=== PATIENT | male | born 1940 | race Caucasian/White ===

== ENCOUNTER 2016-11-29 17:54 | Inpatient (IN) | payer MEDICARE, OTHER ==
[~2016-11-29] VITALS: Ht 180.3 cm; Wt 75.5 kg
[~2016-11-29 17:54] MED LIST: ALFU10TA PO; AMLO10TA4 PO; ASPI-515 PO; GLIP10TA20 PO; LEVO175T2 PO; LOSA1TAB18 PO; METF500T4 PO; METO25TA35 PO; TAMS-11 PO
[2016-11-29] MEDS ORDERED: LOSA100T6 PO (18:07)
[2016-11-29 18:54] LABS: BLOOD UREA NITROGEN 29 mg/dL (7-18)
[2016-11-29] MEDS ORDERED: SODIUM CHLORIDE 0.9% 1,000ML IVBOLUS ONE (19:00)
[2016-11-29] MEDS ORDERED: SODIUM CHLORIDE FLUSH 10ML SYR IVF ONE (19:00)
[2016-11-29] MEDS ORDERED: CIPR500T87 PO (19:25)
[2016-11-29] MEDS ORDERED: CEFTRIAXONE PMX 1GM/50ML 50 ML IVPB ONE (19:30)
[2016-11-29] MEDS ORDERED: CEFTRIAXONE PMX 1GM/50ML 50 ML ONE (19:57)
[2016-11-29] MEDS ORDERED: SODIUM CHLORIDE 0.9% 1,000 ML IV SCH (20:32)
[2016-11-29] MEDS: CEFTRIAXONE PMX 2GM/50ML 50 ML IV SCH (20:56)
[2016-11-29] MEDS ORDERED: DOCUSATE 100 MG CAPSULE PO PRN (21:00)
[2016-11-29] MEDS ORDERED: BISACODYL 10 MG SUPP PR PRN (21:00)
[2016-11-29] MEDS ORDERED: HEPARIN 5,000 UNITS/ML, 1ML SQ SCH (21:00)
[2016-11-29] MEDS ORDERED: POLYETHYLENE GLYCOL 17 GM PACKET PO PRN (21:00)
[2016-11-29] MEDS ORDERED: TRAZODONE 50MG TABLET PO PRN (21:00)
[2016-11-29] MEDS ORDERED: LABETALOL 5MG/ML, 20ML IV PRN (21:00)
[2016-11-29] MEDS ORDERED: ACETAMINOPHEN 325 MG TABLET PO PRN (21:00)
[2016-11-29 21:23] LABS: IS PT STATUS REG ER OR PRE ER? NO
[2016-11-29 21:34] VITALS: BP 157/89
[2016-11-29] MEDS ORDERED: FUROSEMIDE 40 MG/4 ML IV ONE ×2 (22:30→23:30)
[2016-11-29] MEDS: METOPROLOL TARTRATE 25 MG TABLET PO SCH (22:39)
[2016-11-29] MEDS: AMLODIPINE 5 MG TABLET PO SCH (22:39)
[2016-11-29 22:45] LABS: ABG COLLECTION SITE RIGHT RADIAL; COLLATERAL CIRCULATION TESTING NORMAL
[2016-11-29] MEDS: INSULIN ASPART 100 UNITS/ML, PEN SQ-INSULIN SCH (23:32)
[2016-11-30 00:04] LABS: IS PT STATUS REG ER OR PRE ER? NO
[2016-11-30 02:36] VITALS: BP 91/59
[2016-11-30] MEDS ORDERED: HEPARIN 5,000 UNITS/ML, 1ML IV PRN (03:00)
[2016-11-30] MEDS ORDERED: HEPARIN 5,000 UNITS/ML, 1ML IV ONE (03:00)
[2016-11-30] MEDS ORDERED: HEPARIN 25,000 UNITS/500ML PMX 500 ML IV PRN (03:00)
[2016-11-30 04:00] VITALS: BP 98/60
[2016-11-30] MEDS: ASPIRIN 325 MG TABLET PO SCH ×2 (04:39→05:46)
[2016-11-30] MEDS: ATORVASTATIN 80 MG TABLET PO SCH ×2 (04:39→21:45)
[2016-11-30] MEDS: LEVOTHYROXINE 175 MCG TABLET PO SCH (04:51)
[2016-11-30 06:23] LABS: BLOOD UREA NITROGEN 31 mg/dL (7-18)
[2016-11-30 06:31] LABS: IS PT STATUS REG ER OR PRE ER? NO
[2016-11-30 06:35] LABS: ASPARTATE AMINO TRANSFERASE 32 U/L (15-37)
[2016-11-30 06:48] VITALS: BP 106/64
[2016-11-30] MEDS: INSULIN ASPART 100 UNITS/ML, PEN SQ-INSULIN SCH ×4 (07:00→21:44)
[2016-11-30] MEDS ORDERED: LOSARTAN 50MG TABLET PO SCH (09:00)
[2016-11-30] MEDS: TAMSULOSIN 0.4 MG CAP.ER.24H PO SCH (09:37)
[2016-11-30] MEDS: METOPROLOL TARTRATE 25 MG TABLET PO SCH ×2 (09:37→21:45)
[2016-11-30] MEDS: ALBUTEROL SULFATE 2.5 MG/3 ML NPPB SCH ×3 (09:40→19:25)
[2016-11-30] MEDS ORDERED: FENTANYL PF 100 MCG/2ML ONE (13:39)
[2016-11-30] MEDS ORDERED: MIDAZOLAM 1 MG/ML, 5ML ONE (13:40)
[2016-11-30] MEDS ORDERED: TICAGRELOR 90 MG TABLET ONE (13:40)
[2016-11-30] MEDS ORDERED: VERAPAMIL 2.5 MG/ML, 2ML ONE (13:40)
[2016-11-30] MEDS ORDERED: LIDOCAINE 2%, 20ML ONE (13:40)
[2016-11-30] MEDS ORDERED: NITROGLYCERIN 5 MG/ML, 10ML ONE (13:40)
[2016-11-30] MEDS ORDERED: HEPARIN 1,000 UNITS/ML, 10ML ONE (13:40)
[2016-11-30] MEDS ORDERED: BIVALIRUDIN 250 MG ONE (13:40)
[2016-11-30 15:34] VITALS: BP 103/62
[2016-11-30 19:08] VITALS: BP 108/61
[2016-11-30] MEDS: CEFTRIAXONE PMX 2GM/50ML 50 ML IV SCH (21:45)
[2016-11-30] MEDS: AMLODIPINE 5 MG TABLET PO SCH (21:46)
[2016-11-30] MEDS: HEPARIN 5,000 UNITS/ML, 1ML SQ SCH (23:20)
[2016-12-01 01:13] VITALS: BP 110/67
[2016-12-01] MEDS: ASPIRIN 81 MG TABLET EC PO SCH (05:14)
[2016-12-01] MEDS: LEVOTHYROXINE 175 MCG TABLET PO SCH (05:14)
[2016-12-01 05:47] LABS: BLOOD UREA NITROGEN 46 mg/dL (7-18)
[2016-12-01 05:55] LABS: IS PT STATUS REG ER OR PRE ER? NO
[2016-12-01] MEDS: ALBUTEROL SULFATE 2.5 MG/3 ML NPPB SCH ×3 (07:00→18:54)
[2016-12-01] MEDS: INSULIN ASPART 100 UNITS/ML, PEN SQ-INSULIN SCH ×4 (07:30→21:08)
[2016-12-01 08:21] VITALS: BP 121/69
[2016-12-01] MEDS: TAMSULOSIN 0.4 MG CAP.ER.24H PO SCH (10:12)
[2016-12-01] MEDS: METOPROLOL TARTRATE 25 MG TABLET PO SCH (10:12)
[2016-12-01] MEDS: LOSARTAN 50MG TABLET PO SCH (10:12)
[2016-12-01] MEDS: HEPARIN 5,000 UNITS/ML, 1ML SQ SCH ×3 (10:13→21:37)
[2016-12-01] MEDS ORDERED: FLUCONAZOLE 200 MG/100 ML 100 ML IV SCH (10:30)
[2016-12-01] MEDS ORDERED: FUROSEMIDE 40 MG/4 ML IV ONE (11:00)
[2016-12-01 14:54] VITALS: BP 134/75
[2016-12-01] MEDS: CARVEDILOL 6.25 MG TABLET PO SCH (15:04)
[2016-12-01 19:42] VITALS: BP 118/69
[2016-12-01] MEDS: AMLODIPINE 5 MG TABLET PO SCH (21:06)
[2016-12-01] MEDS: CEFTRIAXONE PMX 2GM/50ML 50 ML IV SCH (21:07)
[2016-12-01] MEDS: ATORVASTATIN 80 MG TABLET PO SCH (21:07)
[2016-12-02 01:33] VITALS: BP 115/67
[2016-12-02] MEDS: LEVOTHYROXINE 175 MCG TABLET PO SCH (06:56)
[2016-12-02] MEDS: CARVEDILOL 6.25 MG TABLET PO SCH (06:56)
[2016-12-02] MEDS: ASPIRIN 81 MG TABLET EC PO SCH (06:56)
[2016-12-02] MEDS: ALBUTEROL SULFATE 2.5 MG/3 ML NPPB SCH (07:30)
[2016-12-02 08:16] VITALS: BP 103/65
[2016-12-02] MEDS: LOSARTAN 50MG TABLET PO SCH (09:35)
[2016-12-02] MEDS: HEPARIN 5,000 UNITS/ML, 1ML SQ SCH (09:35)
[2016-12-02] MEDS: TAMSULOSIN 0.4 MG CAP.ER.24H PO SCH (09:35)
[2016-12-02] MEDS: INSULIN ASPART 100 UNITS/ML, PEN SQ-INSULIN SCH (09:36)
[2016-12-31] MEDS ORDERED: ATOR40TA78 PO (14:04)
[2016-12-31] MEDS ORDERED: [UNRECOGNIZED DRUG - OTHER] PO (14:04)
== END 2016-12-02 12:20 | disposition hospice, home (50) | DRG 280 ==
LOC: ED 19:48 → EDIP 20:53 → 4EST 21:13 → 5SO 11-30 03:57
PROVIDERS: ADMIT Internal Medicine; ATTEND Family Medicine
PROC: 4A023N7 Measurement of Cardiac Sampling and Pressure, Left Heart, Percutaneous Approach (ICD-10-PCS; principal; 2016-11-30)
PROC: B2111ZZ Fluoroscopy of Multiple Coronary Arteries using Low Osmolar Contrast (ICD-10-PCS; 2016-11-30)
DX: I21.4 Non-ST elevation (NSTEMI) myocardial infarction (principal); J96.00 Acute respiratory failure, unspecified whether with hypoxia or hypercapnia; I13.0 Hypertensive heart and chronic kidney disease with heart failure and stage 1 through stage 4 chronic kidney disease, or unspecified chronic kidney disease; B37.49 Other urogenital candidiasis; W07.XXXA Fall from chair, initial encounter; I44.7 Left bundle-branch block, unspecified; N18.3 Chronic kidney disease, stage 3 (moderate); E11.22 Type 2 diabetes mellitus with diabetic chronic kidney disease; E78.5 Hyperlipidemia, unspecified; E03.9 Hypothyroidism, unspecified; W01.0XXA Fall on same level from slipping, tripping and stumbling without subsequent striking against object, initial encounter; H40.9 Unspecified glaucoma; Z66 Do not resuscitate; I25.10 Atherosclerotic heart disease of native coronary artery without angina pectoris; I25.5 Ischemic cardiomyopathy; I48.91 Unspecified atrial fibrillation; I50.9 Heart failure, unspecified; Z91.14 Patient's other noncompliance with medication regimen; Z80.0 Family history of malignant neoplasm of digestive organs; Z87.442 Personal history of urinary calculi; Z87.891 Personal history of nicotine dependence; I69.398 Other sequelae of cerebral infarction; Y93.89 Activity, other specified; Y92.89 Other specified places as the place of occurrence of the external cause; Z91.010 Allergy to peanuts; Z79.899 Other long term (current) drug therapy; R31.0 Gross hematuria
CPT/HCPCS: 36415; 36600; 70450; 71010; 74176; 78582; 80048; 80053; 81001; 82040; 82803; 82962; 83036; 83735; 84153; 84439; 84443; 84484; 85025; 85379; 85520; 87040; 87086; 87106; 93005; 93306; 93458; 94640; 96361; 96365; C1894; J0583; J0696; J1644; J1815; J1940; J2250; J3010; J3490; J7613; A9540; A9558; C9898; J1450; J7030; Q9967

== ENCOUNTER → 2016-12-31 | Outpatient (CLI) | payer MEDICARE, OTHER ==
[~2016-12-31] MED LIST changes: +ATOR40TA78 PO; +CIPR500T87 PO; +LOSA100T6 PO; +[UNRECOGNIZED DRUG - OTHER] PO
[2016-12-31 14:47] LABS: BLOOD UREA NITROGEN 25 mg/dL (7-18)
[2016-12-31 14:52] LABS: ASPARTATE AMINO TRANSFERASE 12 U/L (15-37)
== END | disposition home or self-care (01) ==
LOC: STAR 13:27
PROVIDERS: ATTEND Urology
DX: Z01.818 Encounter for other preprocedural examination (principal); N20.1 Calculus of ureter
CPT/HCPCS: 36415; 80053; 81001; 85025; 87086

== ENCOUNTER 2017-01-12 13:49 | Day surgery (SDC) | payer MEDICARE, OTHER ==
[~2017-01-12] VITALS: Ht 180.3 cm; Wt 70.5 kg
[2017-01-12] MEDS ORDERED: MIDAZOLAM 1 MG/ML, 2ML ONE (15:27)
[2017-01-12] MEDS ORDERED: FENTANYL PF 250 MCG/5ML ONE (15:27)
[2017-01-12] MEDS ORDERED: EPHEDRINE 50 MG/ML, 1ML ONE (16:10)
[2017-01-12] MEDS ORDERED: ONDANSETRON 2MG/ML, 2ML ONE (16:10)
[2017-01-12] MEDS ORDERED: DEXAMETHASONE 4 MG/ML, 1ML ONE (16:10)
[2017-01-12] MEDS ORDERED: CEFAZOLIN 1,000 MG ONE (16:10)
[2017-01-12] MEDS ORDERED: PROPOFOL 10 MG/ML, 20ML ONE (16:10)
[2017-01-12] MEDS ORDERED: ROCURONIUM 10 MG/ML ONE (16:10)
[2017-01-14] MEDS ORDERED: LACTATED RINGERS 1,000 ML IV SCH (13:31)
== END 2017-01-12 19:15 | disposition home or self-care (01) ==
LOC: OR 13:49
PROVIDERS: ATTEND Urology
DX: N13.2 Hydronephrosis with renal and ureteral calculous obstruction (principal); N40.1 Benign prostatic hyperplasia with lower urinary tract symptoms; N13.8 Other obstructive and reflux uropathy; E78.5 Hyperlipidemia, unspecified; I44.7 Left bundle-branch block, unspecified; Z86.73 Personal history of transient ischemic attack (TIA), and cerebral infarction without residual deficits; E03.9 Hypothyroidism, unspecified; E11.22 Type 2 diabetes mellitus with diabetic chronic kidney disease; I12.9 Hypertensive chronic kidney disease with stage 1 through stage 4 chronic kidney disease, or unspecified chronic kidney disease; N18.9 Chronic kidney disease, unspecified; Z87.440 Personal history of urinary (tract) infections; Z91.010 Allergy to peanuts
CPT/HCPCS: 52356; 74000; 76000; 82360; 82962; 88300; C1758; C2617; J0690; J1100; J2250; J2405; J2704; J3010

== ENCOUNTER 2017-02-06 07:50 | Inpatient (IN) | payer MEDICARE, OTHER ==
[2017-02-04 12:50] LABS: ASPARTATE AMINO TRANSFERASE 15 U/L (15-37); BLOOD UREA NITROGEN 26 mg/dL (7-18)
[~2017-02-06] VITALS: Ht 180.3 cm; Wt 73.2 kg
[~2017-02-06 07:50] MED LIST changes: +CARV6.2512 PO; +LIDOCAINE 2%, 20ML ONE
[2017-02-06] MEDS ORDERED: MIDAZOLAM 1 MG/ML, 5ML ONE (08:18)
[2017-02-06] MEDS ORDERED: VERAPAMIL 2.5 MG/ML, 2ML ONE ×2 (08:18→08:35)
[2017-02-06] MEDS ORDERED: FENTANYL PF 100 MCG/2ML ONE (08:18)
[2017-02-06] MEDS ORDERED: NITROGLYCERIN 5 MG/ML, 10ML ONE (08:18)
[2017-02-06] MEDS ORDERED: LIDOCAINE 2%, 20ML ONE (08:19)
[2017-02-06] MEDS ORDERED: BIVALIRUDIN 250 MG ONE (08:19)
[2017-02-06] MEDS ORDERED: TICAGRELOR 90 MG TABLET ONE (08:19)
[2017-02-06] MEDS ORDERED: HEPARIN 1,000 UNITS/ML, 10ML ONE (08:19)
[2017-02-06] MEDS ORDERED: SODIUM CHLORIDE 0.9% 1,000 ML IV ONE (08:20)
[2017-02-06] MEDS ORDERED: HEPARIN 25,000 UNITS in DEXTROSE 5% 500 ML IV PRN (12:00)
[2017-02-06 14:57] VITALS: BP 138/74
[2017-02-06] MEDS ORDERED: MORPHINE SULFATE 4 MG/ML, 1ML ONE (15:54)
[2017-02-06] MEDS: metFORMIN 500 MG TABLET PO SCH (16:52)
[2017-02-06] MEDS: SODIUM CHLORIDE 0.9% 1,000 ML IV SCH (16:55)
[2017-02-06] MEDS ORDERED: MORPHINE SULFATE 4 MG/ML, 1ML IVPush PRN (17:00)
[2017-02-06] MEDS: TICAGRELOR 90 MG TABLET PO SCH (20:36)
[2017-02-06] MEDS ORDERED: ATORVASTATIN 40 MG TABLET PO SCH (21:00)
[2017-02-06] MEDS ORDERED: AMLODIPINE 5 MG TABLET PO SCH (21:00)
[2017-02-07] MEDS: SODIUM CHLORIDE 0.9% 1,000 ML IV SCH ×2 (00:12→05:15)
[2017-02-07 04:55] LABS: BLOOD UREA NITROGEN 22 mg/dL (7-18)
[2017-02-07] MEDS ORDERED: LEVOTHYROXINE 175 MCG TABLET PO SCH (06:00)
[2017-02-07] MEDS: metFORMIN 500 MG TABLET PO SCH (08:00)
[2017-02-07] MEDS ORDERED: GLIPizide ER 5 MG TABLET PO SCH (08:00)
[2017-02-07] MEDS ORDERED: TICA90TA PO (08:14)
[2017-02-07] MEDS ORDERED: ASPI-621 PO (08:14)
[2017-02-07] MEDS: TICAGRELOR 90 MG TABLET PO SCH (08:42)
[2017-02-07] MEDS ORDERED: CARVEDILOL 6.25 MG TABLET PO SCH (09:00)
[2017-02-07] MEDS ORDERED: ASPIRIN 81 MG TABLET EC PO SCH (09:00)
[2017-02-07] MEDS ORDERED: LOSARTAN 50MG TABLET PO SCH (09:00)
[2017-02-07] MEDS ORDERED: TAMSULOSIN 0.4 MG CAP.ER.24H PO SCH (09:00)
== END 2017-02-07 14:36 | disposition home or self-care (01) | DRG 215 ==
LOC: CACL 07:50 → CSU 11:35
PROVIDERS: ADMIT Internal Medicine Cardiovascular Disease; ATTEND Internal Medicine Cardiovascular Disease
PROC: 027135Z Dilation of Coronary Artery, Two Arteries with Two Drug-eluting Intraluminal Devices, Percutaneous Approach (ICD-10-PCS; principal; 2017-02-06)
PROC: 02C03ZZ Extirpation of Matter from Coronary Artery, One Artery, Percutaneous Approach (ICD-10-PCS; 2017-02-06)
PROC: 4A023N7 Measurement of Cardiac Sampling and Pressure, Left Heart, Percutaneous Approach (ICD-10-PCS; 2017-02-06)
PROC: B2111ZZ Fluoroscopy of Multiple Coronary Arteries using Low Osmolar Contrast (ICD-10-PCS; 2017-02-06)
PROC: 02HA3RZ Insertion of Short-term External Heart Assist System into Heart, Percutaneous Approach (ICD-10-PCS; 2017-02-06)
PROC: 5A0221D Assistance with Cardiac Output using Impeller Pump, Continuous (ICD-10-PCS; 2017-02-06)
PROC: 02PA3RZ Removal of Short-term External Heart Assist System from Heart, Percutaneous Approach (ICD-10-PCS; 2017-02-06)
DX: I25.10 Atherosclerotic heart disease of native coronary artery without angina pectoris (principal); E78.5 Hyperlipidemia, unspecified; N18.9 Chronic kidney disease, unspecified; I25.5 Ischemic cardiomyopathy; E11.22 Type 2 diabetes mellitus with diabetic chronic kidney disease; I12.9 Hypertensive chronic kidney disease with stage 1 through stage 4 chronic kidney disease, or unspecified chronic kidney disease; E03.9 Hypothyroidism, unspecified; Z86.73 Personal history of transient ischemic attack (TIA), and cerebral infarction without residual deficits; Z87.442 Personal history of urinary calculi; Z87.891 Personal history of nicotine dependence; Z91.010 Allergy to peanuts
CPT/HCPCS: 33990; 36415; 80048; 80053; 82040; 85014; 85018; 85025; 85347; 85610; 85730; 87081; 92920; 93458; 99156; 99157; C1760; C1894; C9600; J0583; J1644; J2250; J3010; J3490; 92928; C1724; C1725; C1769; C1874; C1887; C9602; J7030; J7060; Q9967

== ENCOUNTER 2017-10-20 12:27 | Inpatient (IN) | payer MEDICARE, OTHER ==
[~2017-10-20] VITALS: Ht 180.3 cm; Wt 74.9 kg
[~2017-10-20 12:27] MED LIST changes: +ASPI-621 PO; +GLIP-164 PO; -GLIP10TA20 PO; -LIDOCAINE 2%, 20ML ONE; -LOSA1TAB18 PO; +LOSA1TAB25 PO; +TICA90TA PO
[2017-10-20 13:39] LABS: BASOPHILS # (AUTO) 0.02 x10^3/uL (0-0.1); BASOPHILS % (AUTO) 0 % (0-1); EOSINOPHILS # (AUTO) 0.45 x10^3/uL (0-0.4); EOSINOPHILS % (AUTO) 7 % (1-7); LYMPHOCYTES # (AUTO) 0.96 x10^3/uL (1-3.4); LYMPHOCYTES % (AUTO) 15 % (22-44); MD NO; MEAN CORPUSCULAR HGB CONC 32.9 g/dL (33.2-36.2); MEAN PLATELET VOLUME 7.9 fL (7.4-10.4); MONOCYTES # (AUTO) 0.59 x10^3/uL (0.2-0.8); MONOCYTES % (AUTO) 9 % (2-9); NEUTROPHILS # (AUTO) 4.47 x10^3/uL (1.8-6.8); NEUTROPHILS % (AUTO) 69 % (42-75); PLATELET COUNT 223 x10^3/uL (130-400); RED CELL DISTRIBUTION WIDTH 16.6 % (9.4-14.8)
[2017-10-20 13:50] LABS: INTERNATIONAL NORMALIZED RATIO 1.1 (0.93-1.1); PROTHROMBIN TIME 11.4 Seconds (9.6-11.5)
[2017-10-20] MEDS ORDERED: DEXTROSE 4 GM TAB.CHEW PO PRN (15:30)
[2017-10-20] MEDS ORDERED: GLUCAGON 1 MG IM PRN (15:30)
[2017-10-20] MEDS ORDERED: BISACODYL 10 MG SUPP PR PRN (15:30)
[2017-10-20] MEDS ORDERED: DOCUSATE 100 MG CAPSULE PO PRN (15:30)
[2017-10-20] MEDS ORDERED: PROMETHAZINE 25 MG/ML, 1ML IM PRN (15:30)
[2017-10-20] MEDS ORDERED: DEXTROSE 50%, 50ML SYRINGE IVPush PRN (15:30)
[2017-10-20] MEDS ORDERED: LABETALOL 5MG/ML, 20ML IVPush PRN (15:30)
[2017-10-20] MEDS ORDERED: ACETAMINOPHEN 325 MG TABLET PO PRN (15:30)
[2017-10-20] MEDS: INSULIN LISPRO 100 UNITS/ML, PEN SQ-INSULIN SCH ×2 (16:00→20:22)
[2017-10-20 16:49] VITALS: BP 129/70
[2017-10-20 16:56] LABS: BASOPHILS # (AUTO) 0.04 x10^3/uL (0-0.1); BASOPHILS % (AUTO) 1 % (0-1); EOSINOPHILS % (AUTO) 7 % (1-7); LYMPHOCYTES # (AUTO) 1.21 x10^3/uL (1-3.4); LYMPHOCYTES % (AUTO) 18 % (22-44); MD NO; MEAN CORPUSCULAR HEMOGLOBIN 26.7 pg (27.5-34.5); MEAN CORPUSCULAR HGB CONC 33.4 g/dL (33.2-36.2); MEAN CORPUSCULAR VOLUME 79.7 fL (81-97); MEAN PLATELET VOLUME 7.9 fL (7.4-10.4); MONOCYTES # (AUTO) 0.72 x10^3/uL (0.2-0.8); MONOCYTES % (AUTO) 11 % (2-9); NEUTROPHILS # (AUTO) 4.34 x10^3/uL (1.8-6.8); NEUTROPHILS % (AUTO) 64 % (42-75); PLATELET COUNT 238 x10^3/uL (130-400); RED BLOOD COUNT 3.45 x10^6/uL (4.38-5.82); RED CELL DISTRIBUTION WIDTH 16.6 % (9.4-14.8)
[2017-10-20 17:13] VITALS: BP 129/70
[2017-10-20] MEDS: HEPARIN 5,000 UNITS/ML, 1ML SQ SCH (17:32)
[2017-10-20 18:48] LABS: MICROSCOPIC INDICATED
[2017-10-20 18:49] LABS: CULTURE INDICATED? YES
[2017-10-20 20:00] VITALS: BP 127/69
[2017-10-20] MEDS: SODIUM CHLORIDE FLUSH 10ML SYR IVF SCH (20:22)
[2017-10-20] MEDS: ATORVASTATIN 40 MG TABLET PO SCH (20:22)
[2017-10-20] MEDS ORDERED: AMLODIPINE 5 MG TABLET PO SCH (21:00)
[2017-10-21] MEDS: HEPARIN 5,000 UNITS/ML, 1ML SQ SCH ×4 (00:35→16:30)
[2017-10-21 02:00] VITALS: BP 111/64
[2017-10-21 04:49] LABS: CHLORIDE 107 mmol/L (98-107)
[2017-10-21 04:58] LABS: ALANINE AMINOTRANSFERASE 18 U/L (12-78); ALBUMIN 2.7 g/dL (3.4-5.0); ALKALINE PHOSPHATASE 148 U/L (45-117); ANION GAP 8 mmol/L (5-15); BILIRUBIN,TOTAL 0.4 mg/dL (0.2-1.0); CALCIUM 9.5 mg/dL (8.5-10.1); CREATININE 1.46 mg/dL (0.7-1.3); TOTAL PROTEIN 6.1 g/dL (6.4-8.2)
[2017-10-21] MEDS: LEVOTHYROXINE 175 MCG TABLET PO SCH (05:59)
[2017-10-21] MEDS: INSULIN LISPRO 100 UNITS/ML, PEN SQ-INSULIN SCH ×4 (07:57→21:15)
[2017-10-21 08:40] VITALS: BP 132/72
[2017-10-21] MEDS: GLIPizide ER 5 MG TABLET PO SCH (08:55)
[2017-10-21] MEDS: CARVEDILOL 6.25 MG TABLET PO SCH (08:58)
[2017-10-21] MEDS: ASPIRIN 81 MG TABLET EC PO SCH (08:58)
[2017-10-21] MEDS: TAMSULOSIN 0.4 MG CAP.ER.24H PO SCH (08:58)
[2017-10-21] MEDS: SODIUM CHLORIDE FLUSH 10ML SYR IVF SCH ×2 (09:00→21:00)
[2017-10-21] MEDS ORDERED: LOSARTAN 50MG TABLET PO SCH (09:00)
[2017-10-21 14:20] VITALS: BP 104/59
[2017-10-21 20:28] VITALS: BP 117/64
[2017-10-21] MEDS: ATORVASTATIN 40 MG TABLET PO SCH (21:15)
[2017-10-22 00:10] VITALS: BP 149/65
[2017-10-22] MEDS: HEPARIN 5,000 UNITS/ML, 1ML SQ SCH ×3 (00:55→16:47)
[2017-10-22] MEDS: LEVOTHYROXINE 175 MCG TABLET PO SCH (06:12)
[2017-10-22 06:37] LABS: ALANINE AMINOTRANSFERASE 19 U/L (12-78); ALBUMIN 2.9 g/dL (3.4-5.0); ANION GAP 8 mmol/L (5-15); CALCIUM 9.3 mg/dL (8.5-10.1); CHLORIDE 108 mmol/L (98-107); CREATININE 1.68 mg/dL (0.7-1.3)
[2017-10-22 06:40] LABS: ALKALINE PHOSPHATASE 148 U/L (45-117); BILIRUBIN,TOTAL 0.4 mg/dL (0.2-1.0); TOTAL PROTEIN 6.2 g/dL (6.4-8.2)
[2017-10-22 07:43] VITALS: BP 145/74
[2017-10-22] MEDS: INSULIN LISPRO 100 UNITS/ML, PEN SQ-INSULIN SCH ×4 (08:25→20:58)
[2017-10-22 08:51] LABS: TROPONIN I < 0.015 ng/mL (0.000-0.045)
[2017-10-22] MEDS: TAMSULOSIN 0.4 MG CAP.ER.24H PO SCH (10:16)
[2017-10-22] MEDS: CARVEDILOL 6.25 MG TABLET PO SCH (10:16)
[2017-10-22] MEDS: ASPIRIN 81 MG TABLET EC PO SCH (10:16)
[2017-10-22] MEDS: GLIPizide ER 5 MG TABLET PO SCH (10:17)
[2017-10-22] MEDS: SODIUM CHLORIDE FLUSH 10ML SYR IVF SCH ×2 (10:21→20:58)
[2017-10-22 13:40] VITALS: BP 114/82
[2017-10-22 19:22] VITALS: BP 127/57
[2017-10-22] MEDS: ATORVASTATIN 40 MG TABLET PO SCH (20:58)
[2017-10-23 00:17] VITALS: BP 135/70
[2017-10-23] MEDS: HEPARIN 5,000 UNITS/ML, 1ML SQ SCH ×4 (01:20→20:17)
[2017-10-23] MEDS: LEVOTHYROXINE 175 MCG TABLET PO SCH (05:25)
[2017-10-23 06:02] LABS: ALBUMIN 2.8 g/dL (3.4-5.0); ANION GAP 7 mmol/L (5-15); CALCIUM 9.2 mg/dL (8.5-10.1); CHLORIDE 111 mmol/L (98-107)
[2017-10-23 06:07] LABS: ALANINE AMINOTRANSFERASE 18 U/L (12-78); ALKALINE PHOSPHATASE 144 U/L (45-117); BILIRUBIN,TOTAL 0.5 mg/dL (0.2-1.0); CREATININE 1.41 mg/dL (0.7-1.3); TOTAL PROTEIN 6.3 g/dL (6.4-8.2)
[2017-10-23 07:34] VITALS: BP 133/69
[2017-10-23] MEDS: TAMSULOSIN 0.4 MG CAP.ER.24H PO SCH (09:01)
[2017-10-23] MEDS: GLIPizide ER 5 MG TABLET PO SCH (09:01)
[2017-10-23] MEDS: CARVEDILOL 6.25 MG TABLET PO SCH (09:02)
[2017-10-23] MEDS: SODIUM CHLORIDE FLUSH 10ML SYR IVF SCH ×2 (09:02→20:55)
[2017-10-23] MEDS: INSULIN LISPRO 100 UNITS/ML, PEN SQ-INSULIN SCH ×4 (09:02→20:18)
[2017-10-23] MEDS: ASPIRIN 81 MG TABLET EC PO SCH (09:02)
[2017-10-23 16:19] VITALS: BP 136/80
[2017-10-23 18:46] VITALS: BP 127/68
[2017-10-23] MEDS: ATORVASTATIN 40 MG TABLET PO SCH (20:17)
[2017-10-24 01:31] VITALS: BP 150/72
[2017-10-24] MEDS: LEVOTHYROXINE 175 MCG TABLET PO SCH (06:25)
[2017-10-24] MEDS: HEPARIN 5,000 UNITS/ML, 1ML SQ SCH ×3 (06:26→22:59)
[2017-10-24] MEDS: INSULIN LISPRO 100 UNITS/ML, PEN SQ-INSULIN SCH ×4 (07:00→20:29)
[2017-10-24 07:19] VITALS: BP 105/55
[2017-10-24] MEDS: GLIPizide ER 5 MG TABLET PO SCH (08:00)
[2017-10-24] MEDS: LOSARTAN 50MG TABLET PO SCH (09:30)
[2017-10-24] MEDS: ATORVASTATIN 40 MG TABLET PO SCH ×2 (09:30→20:30)
[2017-10-24] MEDS: ASPIRIN 81 MG TABLET EC PO SCH (09:31)
[2017-10-24] MEDS: CARVEDILOL 6.25 MG TABLET PO SCH (09:31)
[2017-10-24] MEDS: SODIUM CHLORIDE FLUSH 10ML SYR IVF SCH ×2 (09:32→20:30)
[2017-10-24] MEDS: TAMSULOSIN 0.4 MG CAP.ER.24H PO SCH (09:33)
[2017-10-24 12:36] VITALS: BP 121/63
[2017-10-24 18:57] VITALS: BP 122/55
[2017-10-25 00:56] VITALS: BP 132/72
[2017-10-25] MEDS: LEVOTHYROXINE 175 MCG TABLET PO SCH (06:01)
[2017-10-25] MEDS: HEPARIN 5,000 UNITS/ML, 1ML SQ SCH ×3 (06:01→22:20)
[2017-10-25] MEDS: INSULIN LISPRO 100 UNITS/ML, PEN SQ-INSULIN SCH ×4 (07:00→22:21)
[2017-10-25 07:15] VITALS: BP 114/69
[2017-10-25] MEDS: GLIPizide ER 5 MG TABLET PO SCH (08:00)
[2017-10-25] MEDS: CARVEDILOL 6.25 MG TABLET PO SCH (08:55)
[2017-10-25] MEDS: LOSARTAN 50MG TABLET PO SCH (08:55)
[2017-10-25] MEDS: SODIUM CHLORIDE FLUSH 10ML SYR IVF SCH ×2 (08:55→22:20)
[2017-10-25] MEDS: TAMSULOSIN 0.4 MG CAP.ER.24H PO SCH (08:55)
[2017-10-25] MEDS: ATORVASTATIN 40 MG TABLET PO SCH ×2 (08:55→22:20)
[2017-10-25] MEDS: ASPIRIN 81 MG TABLET EC PO SCH (08:55)
[2017-10-25 12:50] VITALS: BP 126/62
[2017-10-25 19:03] VITALS: BP 116/60
[2017-10-26 00:35] VITALS: BP 119/65
[2017-10-26] MEDS: LEVOTHYROXINE 175 MCG TABLET PO SCH (06:33)
[2017-10-26] MEDS: HEPARIN 5,000 UNITS/ML, 1ML SQ SCH ×2 (06:33→14:19)
[2017-10-26 07:00] VITALS: BP 130/73
[2017-10-26] MEDS: INSULIN LISPRO 100 UNITS/ML, PEN SQ-INSULIN SCH ×3 (07:00→16:32)
[2017-10-26] MEDS: GLIPizide ER 5 MG TABLET PO SCH (08:00)
[2017-10-26] MEDS: TAMSULOSIN 0.4 MG CAP.ER.24H PO SCH (08:19)
[2017-10-26] MEDS: ATORVASTATIN 40 MG TABLET PO SCH (08:19)
[2017-10-26] MEDS: CARVEDILOL 6.25 MG TABLET PO SCH (08:20)
[2017-10-26] MEDS: SODIUM CHLORIDE FLUSH 10ML SYR IVF SCH (08:20)
[2017-10-26] MEDS: ASPIRIN 81 MG TABLET EC PO SCH (08:20)
[2017-10-26] MEDS: LOSARTAN 50MG TABLET PO SCH (08:20)
[2017-10-26] MEDS ORDERED: metFORMIN 500 MG TABLET PO SCH (09:00)
[2017-10-26] MEDS ORDERED: ASPI-621 PO (09:31)
[2017-10-26 12:50] VITALS: BP 118/66
== END 2017-10-26 18:05 | disposition short-term general hospital (02) | DRG 64 ==
LOC: ED 14:30 → EDIP 15:07 → 4EST 16:26
PROVIDERS: ADMIT Family Medicine; ATTEND Family Medicine
DX: I63.9 Cerebral infarction, unspecified (principal); N17.0 Acute kidney failure with tubular necrosis; I47.1 Supraventricular tachycardia; G81.94 Hemiplegia, unspecified affecting left nondominant side; I50.9 Heart failure, unspecified; G93.89 Other specified disorders of brain; I11.0 Hypertensive heart disease with heart failure; E11.9 Type 2 diabetes mellitus without complications; E03.9 Hypothyroidism, unspecified; I25.10 Atherosclerotic heart disease of native coronary artery without angina pectoris; N40.0 Benign prostatic hyperplasia without lower urinary tract symptoms; E78.5 Hyperlipidemia, unspecified; Z79.82 Long term (current) use of aspirin; Z95.5 Presence of coronary angioplasty implant and graft
CPT/HCPCS: 36415; 70450; 70551; 71045; 74230; 80047; 80053; 81001; 82962; 83735; 84443; 84484; 85025; 85610; 85730; 87040; 87086; 93005; 93306; 93880; 99285; J1644; 92522-GN; J1815

== ENCOUNTER 2017-12-14 07:23 | Inpatient (IN) | payer MEDICARE, OTHER ==
[~2017-12-14] VITALS: Ht 180.3 cm; Wt 77.6 kg
[~2017-12-14 07:23] MED LIST changes: +FURO20TA3 PO
[2017-12-14] MEDS ORDERED: ASPIRIN 81 MG TABLET CHEW ONE (07:45)
[2017-12-14 07:52] LABS: BASOPHILS # (AUTO) 0.04 x10^3/uL (0-0.1); BASOPHILS % (AUTO) 1 % (0-1); EOSINOPHILS # (AUTO) 0.14 x10^3/uL (0-0.4); EOSINOPHILS % (AUTO) 2 % (1-7); LYMPHOCYTES # (AUTO) 1.21 x10^3/uL (1-3.4); LYMPHOCYTES % (AUTO) 15 % (22-44); MD NO; MEAN CORPUSCULAR HEMOGLOBIN 26.2 pg (27.5-34.5); MEAN CORPUSCULAR HGB CONC 32.7 g/dL (33.2-36.2); MEAN CORPUSCULAR VOLUME 80.1 fL (81-97); MEAN PLATELET VOLUME 7.7 fL (7.4-10.4); MONOCYTES # (AUTO) 0.78 x10^3/uL (0.2-0.8); MONOCYTES % (AUTO) 10 % (2-9); NEUTROPHILS # (AUTO) 5.75 x10^3/uL (1.8-6.8); NEUTROPHILS % (AUTO) 73 % (42-75); PLATELET COUNT 206 x10^3/uL (130-400); RED CELL DISTRIBUTION WIDTH 16.3 % (9.4-14.8)
[2017-12-14] MEDS ORDERED: ASPIRIN 81 MG TABLET CHEW PO ONE (08:00)
[2017-12-14 08:04] LABS: ALBUMIN 2.9 g/dL (3.4-5.0); ANION GAP 8 mmol/L (5-15); CALCIUM 9.4 mg/dL (8.5-10.1); CHLORIDE 109 mmol/L (98-107); CREATININE 1.29 mg/dL (0.7-1.3)
[2017-12-14 08:08] LABS: TROPONIN I < 0.015 ng/mL (0.000-0.045)
[2017-12-14] MEDS ORDERED: LIDOCAINE-MPF 1%, 5ML ONE (09:49)
[2017-12-14] MEDS ORDERED: GLUCAGON 1 MG IM PRN (15:30)
[2017-12-14] MEDS ORDERED: ACETAMINOPHEN 325 MG TABLET PO PRN (15:30)
[2017-12-14] MEDS ORDERED: DEXTROSE 4 GM TAB.CHEW PO PRN (15:30)
[2017-12-14] MEDS ORDERED: DEXTROSE 50%, 50ML SYRINGE IVPush PRN (15:30)
[2017-12-14] MEDS ORDERED: ONDANSETRON ODT 4 MG PO PRN (15:30)
[2017-12-14] MEDS ORDERED: FUROSEMIDE 20 MG/2 ML IV ONE (15:30)
[2017-12-14] MEDS: INSULIN LISPRO 100 UNITS/ML, PEN SQ-INSULIN SCH ×2 (16:00→21:57)
[2017-12-14] MEDS ORDERED: HEPARIN 5,000 UNITS/ML, 1ML ONE (16:48)
[2017-12-14] MEDS ORDERED: FUROSEMIDE 20 MG/2 ML ONE (16:49)
[2017-12-14] MEDS: HEPARIN 5,000 UNITS/ML, 1ML SQ SCH ×2 (16:54→21:17)
[2017-12-14 18:44] VITALS: BP 134/82
[2017-12-14] MEDS: ATORVASTATIN 40 MG TABLET PO SCH (21:16)
[2017-12-14] MEDS: AMLODIPINE 5 MG TABLET PO SCH (21:16)
[2017-12-14] MEDS: SODIUM CHLORIDE FLUSH 10ML SYR IVF SCH (21:17)
[2017-12-15 02:20] VITALS: BP 127/58
[2017-12-15 05:14] LABS: BASOPHILS # (AUTO) 0.01 x10^3/uL (0-0.1); BASOPHILS % (AUTO) 0 % (0-1); EOSINOPHILS # (AUTO) 0.17 x10^3/uL (0-0.4); EOSINOPHILS % (AUTO) 3 % (1-7); LYMPHOCYTES # (AUTO) 1.04 x10^3/uL (1-3.4); LYMPHOCYTES % (AUTO) 15 % (22-44); MD NO; MEAN CORPUSCULAR HEMOGLOBIN 26.4 pg (27.5-34.5); MEAN CORPUSCULAR VOLUME 80.2 fL (81-97); MEAN PLATELET VOLUME 7.9 fL (7.4-10.4); MONOCYTES # (AUTO) 0.64 x10^3/uL (0.2-0.8); MONOCYTES % (AUTO) 10 % (2-9); NEUTROPHILS # (AUTO) 4.92 x10^3/uL (1.8-6.8); NEUTROPHILS % (AUTO) 73 % (42-75); PLATELET COUNT 191 x10^3/uL (130-400); RED BLOOD COUNT 3.44 x10^6/uL (4.38-5.82); RED CELL DISTRIBUTION WIDTH 16.4 % (9.4-14.8)
[2017-12-15 05:21] LABS: CHLORIDE 110 mmol/L (98-107)
[2017-12-15 05:27] LABS: HEMOGLOBIN A1C 6.5 % (4.2-6.3)
[2017-12-15 05:29] LABS: ALANINE AMINOTRANSFERASE 17 U/L (12-78); ALBUMIN 2.6 g/dL (3.4-5.0); ALKALINE PHOSPHATASE 117 U/L (45-117); ANION GAP 7 mmol/L (5-15); BILIRUBIN,TOTAL 0.7 mg/dL (0.2-1.0); CALCIUM 9.5 mg/dL (8.5-10.1); CREATININE 1.25 mg/dL (0.7-1.3); TOTAL PROTEIN 5.6 g/dL (6.4-8.2)
[2017-12-15] MEDS: LEVOTHYROXINE 175 MCG TABLET PO SCH (05:52)
[2017-12-15 07:48] VITALS: BP 149/76
[2017-12-15] MEDS: INSULIN LISPRO 100 UNITS/ML, PEN SQ-INSULIN SCH ×4 (08:14→20:08)
[2017-12-15] MEDS: GLIPizide ER 5 MG TABLET PO SCH (08:24)
[2017-12-15] MEDS: HEPARIN 5,000 UNITS/ML, 1ML SQ SCH ×2 (08:24→16:08)
[2017-12-15] MEDS: TAMSULOSIN 0.4 MG CAP.ER.24H PO SCH (08:24)
[2017-12-15] MEDS: ASPIRIN 81 MG TABLET EC PO SCH (08:24)
[2017-12-15] MEDS: SENNA/DOCUSATE TABLET PO SCH (08:24)
[2017-12-15] MEDS: CARVEDILOL 6.25 MG TABLET PO SCH (08:25)
[2017-12-15] MEDS: LOSARTAN 50MG TABLET PO SCH (08:25)
[2017-12-15] MEDS: SODIUM CHLORIDE FLUSH 10ML SYR IVF SCH ×2 (08:42→21:00)
[2017-12-15] MEDS ORDERED: FUROSEMIDE 20 MG/2 ML IV SCH (09:00)
[2017-12-15 15:36] VITALS: BP 112/62
[2017-12-15] MEDS: FUROSEMIDE 20 MG/2 ML IV SCH (16:08)
[2017-12-15 18:44] VITALS: BP 116/57
[2017-12-15] MEDS: AMLODIPINE 5 MG TABLET PO SCH (20:08)
[2017-12-15] MEDS: ATORVASTATIN 40 MG TABLET PO SCH (20:08)
[2017-12-16 01:15] VITALS: BP 149/74
[2017-12-16] MEDS: HEPARIN 5,000 UNITS/ML, 1ML SQ SCH ×3 (02:04→16:46)
[2017-12-16] MEDS: LEVOTHYROXINE 175 MCG TABLET PO SCH (05:50)
[2017-12-16 06:40] VITALS: BP 118/78
[2017-12-16 06:43] LABS: % IRON SATURATION 11 % (20-55); ALANINE AMINOTRANSFERASE 18 U/L (12-78); ALBUMIN 2.8 g/dL (3.4-5.0); ANION GAP 7 mmol/L (5-15); CALCIUM 9.9 mg/dL (8.5-10.1); CHLORIDE 107 mmol/L (98-107); CREATININE 1.37 mg/dL (0.7-1.3); IRON LEVEL 33 mcg/dL (65-175); TOTAL IRON BINDING CAPACITY 312 mcg/dL (250-450)
[2017-12-16 06:46] LABS: ALKALINE PHOSPHATASE 125 U/L (45-117); BILIRUBIN,TOTAL 0.5 mg/dL (0.2-1.0); TOTAL PROTEIN 5.9 g/dL (6.4-8.2)
[2017-12-16] MEDS: INSULIN LISPRO 100 UNITS/ML, PEN SQ-INSULIN SCH ×4 (07:00→20:09)
[2017-12-16] MEDS: SENNA/DOCUSATE TABLET PO SCH (09:00)
[2017-12-16] MEDS: FUROSEMIDE 20 MG/2 ML IV SCH (09:32)
[2017-12-16] MEDS: SODIUM CHLORIDE FLUSH 10ML SYR IVF SCH ×2 (09:33→20:09)
[2017-12-16] MEDS: GLIPizide ER 5 MG TABLET PO SCH (09:33)
[2017-12-16] MEDS: TAMSULOSIN 0.4 MG CAP.ER.24H PO SCH (09:33)
[2017-12-16] MEDS: ASPIRIN 81 MG TABLET EC PO SCH (09:34)
[2017-12-16] MEDS: LOSARTAN 50MG TABLET PO SCH (09:35)
[2017-12-16] MEDS: CARVEDILOL 6.25 MG TABLET PO SCH (09:35)
[2017-12-16] MEDS ORDERED: FERR325T5 PO (10:55)
[2017-12-16 13:20] VITALS: BP 104/70
[2017-12-16] MEDS: FUROSEMIDE 20 MG TABLET PO SCH (16:46)
[2017-12-16 18:34] VITALS: BP 118/57
[2017-12-16] MEDS: ATORVASTATIN 40 MG TABLET PO SCH (20:08)
[2017-12-16] MEDS: AMLODIPINE 5 MG TABLET PO SCH (20:08)
[2017-12-17] MEDS: HEPARIN 5,000 UNITS/ML, 1ML SQ SCH ×3 (00:22→17:55)
[2017-12-17 00:46] VITALS: BP 119/59
[2017-12-17] MEDS: LEVOTHYROXINE 175 MCG TABLET PO SCH (05:24)
[2017-12-17 06:32] LABS: CHLORIDE 108 mmol/L (98-107)
[2017-12-17 06:40] LABS: ANION GAP 9 mmol/L (5-15); CALCIUM 9.7 mg/dL (8.5-10.1); CREATININE 1.34 mg/dL (0.7-1.3)
[2017-12-17] MEDS: INSULIN LISPRO 100 UNITS/ML, PEN SQ-INSULIN SCH ×4 (07:21→21:07)
[2017-12-17 07:46] VITALS: BP 129/68
[2017-12-17] MEDS: LOSARTAN 50MG TABLET PO SCH (07:47)
[2017-12-17] MEDS: FERROUS SULFATE 325 MG TABLET PO SCH ×2 (07:47→18:13)
[2017-12-17] MEDS: TAMSULOSIN 0.4 MG CAP.ER.24H PO SCH (07:48)
[2017-12-17] MEDS: SENNA/DOCUSATE TABLET PO SCH (07:48)
[2017-12-17] MEDS: ASPIRIN 81 MG TABLET EC PO SCH (07:48)
[2017-12-17] MEDS: GLIPizide ER 5 MG TABLET PO SCH (07:49)
[2017-12-17] MEDS: FUROSEMIDE 20 MG TABLET PO SCH ×2 (07:49→18:13)
[2017-12-17] MEDS: CARVEDILOL 6.25 MG TABLET PO SCH (07:49)
[2017-12-17] MEDS: SODIUM CHLORIDE FLUSH 10ML SYR IVF SCH ×2 (07:50→21:11)
[2017-12-17 13:30] VITALS: BP 123/62
[2017-12-17 18:49] VITALS: BP 124/63
[2017-12-17] MEDS: AMLODIPINE 5 MG TABLET PO SCH (21:02)
[2017-12-17] MEDS: ATORVASTATIN 40 MG TABLET PO SCH (21:02)
[2017-12-18 00:49] VITALS: BP 126/66
[2017-12-18] MEDS: HEPARIN 5,000 UNITS/ML, 1ML SQ SCH ×2 (01:15→08:05)
[2017-12-18 05:17] VITALS: BP 108/59
[2017-12-18] MEDS: LEVOTHYROXINE 175 MCG TABLET PO SCH (05:47)
[2017-12-18 06:19] LABS: ANION GAP 9 mmol/L (5-15); CALCIUM 10.1 mg/dL (8.5-10.1); CHLORIDE 109 mmol/L (98-107)
[2017-12-18 06:20] LABS: CREATININE 1.26 mg/dL (0.7-1.3)
[2017-12-18] MEDS: INSULIN LISPRO 100 UNITS/ML, PEN SQ-INSULIN SCH ×2 (07:00→13:04)
[2017-12-18] MEDS: GLIPizide ER 5 MG TABLET PO SCH (07:30)
[2017-12-18 07:50] VITALS: BP 116/64
[2017-12-18] MEDS ORDERED: metFORMIN 500 MG TABLET PO SCH (08:00)
[2017-12-18] MEDS: SODIUM CHLORIDE FLUSH 10ML SYR IVF SCH (08:06)
[2017-12-18] MEDS: CARVEDILOL 6.25 MG TABLET PO SCH (08:07)
[2017-12-18] MEDS: SENNA/DOCUSATE TABLET PO SCH (08:08)
[2017-12-18] MEDS: FERROUS SULFATE 325 MG TABLET PO SCH (08:08)
[2017-12-18] MEDS: TAMSULOSIN 0.4 MG CAP.ER.24H PO SCH (08:08)
[2017-12-18] MEDS: LOSARTAN 50MG TABLET PO SCH (08:08)
[2017-12-18] MEDS: FUROSEMIDE 20 MG TABLET PO SCH (08:09)
[2017-12-18] MEDS: ASPIRIN 81 MG TABLET EC PO SCH (08:09)
[2017-12-18 08:13] VITALS: BP 109/62
== END 2017-12-18 13:52 | DRG 291 ==
LOC: ED 09:29 → EDIP 14:13 → 5SO 18:40 → 3NE 12-18 05:15
PROVIDERS: ADMIT Hospitalist; ATTEND Hospitalist
PROC: 0W9B3ZZ Drainage of Left Pleural Cavity, Percutaneous Approach (ICD-10-PCS; principal; 2017-12-14)
DX: I11.0 Hypertensive heart disease with heart failure (principal); J96.21 Acute and chronic respiratory failure with hypoxia; E11.9 Type 2 diabetes mellitus without complications; I25.10 Atherosclerotic heart disease of native coronary artery without angina pectoris; E03.9 Hypothyroidism, unspecified; D50.9 Iron deficiency anemia, unspecified; I44.7 Left bundle-branch block, unspecified; I50.33 Acute on chronic diastolic (congestive) heart failure; Z95.5 Presence of coronary angioplasty implant and graft; Z91.19 Patient's noncompliance with other medical treatment and regimen; Z86.73 Personal history of transient ischemic attack (TIA), and cerebral infarction without residual deficits; R32 Unspecified urinary incontinence; Z66 Do not resuscitate; Z79.82 Long term (current) use of aspirin; Z79.84 Long term (current) use of oral hypoglycemic drugs; Z91.010 Allergy to peanuts
CPT/HCPCS: 32555; 36415; 71045; 80048; 80053; 82040; 82728; 82945; 82962; 83036; 83540; 83550; 83615; 83735; 83880; 84157; 84443; 84466; 84484; 85025; 87070; 87075; 87205; 88112; 88305; 88341; 88342; 89051; 93005; 99285; J1644; G0461; J1815; J1940

== ENCOUNTER 2018-01-20 19:14 | Inpatient (IN) | payer MEDICARE, OTHER ==
[~2018-01-20] VITALS: Ht 175.3 cm; Wt 83.3 kg
[~2018-01-20 19:14] MED LIST changes: +FERR325T5 PO; -METF500T4 PO; +METF500T5 PO
[2018-01-20] MEDS ORDERED: FUROSEMIDE 100 MG/10 ML IV ONE (19:30)
[2018-01-20 19:45] LABS: BASOPHILS # (AUTO) 0.01 x10^3/uL (0-0.1); BASOPHILS % (AUTO) 0 % (0-1); EOSINOPHILS % (AUTO) 4 % (1-7); LYMPHOCYTES # (AUTO) 1.11 x10^3/uL (1-3.4); LYMPHOCYTES % (AUTO) 21 % (22-44); MD NO; MEAN CORPUSCULAR HEMOGLOBIN 27.1 pg (27.5-34.5); MEAN CORPUSCULAR HGB CONC 32.6 g/dL (33.2-36.2); MEAN CORPUSCULAR VOLUME 83.2 fL (81-97); MEAN PLATELET VOLUME 7.9 fL (7.4-10.4); MONOCYTES # (AUTO) 0.71 x10^3/uL (0.2-0.8); MONOCYTES % (AUTO) 13 % (2-9); NEUTROPHILS # (AUTO) 3.39 x10^3/uL (1.8-6.8); NEUTROPHILS % (AUTO) 63 % (42-75); PLATELET COUNT 209 x10^3/uL (130-400); RED BLOOD COUNT 3.34 x10^6/uL (4.38-5.82); RED CELL DISTRIBUTION WIDTH 17.3 % (9.4-14.8)
[2018-01-20 19:55] LABS: ALBUMIN 2.6 g/dL (3.4-5.0); ANION GAP 6 mmol/L (5-15); CALCIUM 11.4 mg/dL (8.5-10.1); CHLORIDE 103 mmol/L (98-107); CREATININE 1.68 mg/dL (0.7-1.3)
[2018-01-20] MEDS ORDERED: FURO20TA3 PO (19:55)
[2018-01-20] MEDS ORDERED: ASPI-515 PO (19:55)
[2018-01-20] MEDS ORDERED: BISA10SU2 PR (19:55)
[2018-01-20] MEDS ORDERED: DOXY100C2 PO (19:55)
[2018-01-20] MEDS ORDERED: INSU100C5 SQ-INSULIN (19:55)
[2018-01-20] MEDS ORDERED: AMLO10TA2 PO (19:55)
[2018-01-20] MEDS ORDERED: LEVO175T5 PO (19:56)
[2018-01-20] MEDS ORDERED: MAGN311T PO (19:56)
[2018-01-20] MEDS ORDERED: SENN-87 PO (19:56)
[2018-01-20] MEDS ORDERED: SPIR25TA3 PO (19:56)
[2018-01-20] MEDS ORDERED: INSU100V8 SQ (19:56)
[2018-01-20] MEDS ORDERED: SODIUM CHLORIDE FLUSH 10ML SYR IVF PRN (20:00)
[2018-01-20] MEDS ORDERED: DEXTROSE 50%, 50ML SYRINGE ONE (20:23)
[2018-01-20 20:27] VITALS: BP 118/71
[2018-01-20] MEDS ORDERED: D5%-0.45NACL+KCL 20MEQ 1,000 ML IV SCH (21:00)
[2018-01-20] MEDS ORDERED: hydrALAzine 20 MG/ML, 1ML IVPush PRN (22:00)
[2018-01-20] MEDS ORDERED: DEXTROSE 50%, 50ML SYRINGE IVPush PRN (22:00)
[2018-01-20] MEDS ORDERED: BISACODYL 10 MG SUPP PR PRN (22:00)
[2018-01-20] MEDS ORDERED: DEXTROSE 4 GM TAB.CHEW PO PRN (22:00)
[2018-01-20] MEDS ORDERED: GLUCAGON 1 MG IM PRN (22:00)
[2018-01-20] MEDS ORDERED: ONDANSETRON ODT 4 MG PO PRN (22:00)
[2018-01-20] MEDS ORDERED: ONDANSETRON 2MG/ML, 2ML IVPush PRN (22:00)
[2018-01-20] MEDS ORDERED: ENALAPRILAT 1.25 MG/ML, 2ML IVPush PRN (22:00)
[2018-01-20] MEDS ORDERED: POLYETHYLENE GLYCOL 17 GM PACKET PO PRN (22:00)
[2018-01-20] MEDS ORDERED: ACETAMINOPHEN 325 MG TABLET PO PRN (22:00)
[2018-01-20] MEDS ORDERED: DOCUSATE 100 MG CAPSULE PO PRN (22:00)
[2018-01-20 22:52] LABS: ALBUMIN 2.6 g/dL (3.4-5.0)
[2018-01-20 22:55] LABS: TROPONIN I < 0.015 ng/mL (0.000-0.045)
[2018-01-20] MEDS ORDERED: CEFEPIME 2 GM in DEXTROSE 5% 100 ML IV SCH (23:00)
[2018-01-21] MEDS: HEPARIN 5,000 UNITS/ML, 1ML SQ SCH ×3 (00:07→17:04)
[2018-01-21 00:15] VITALS: BP 116/62
[2018-01-21 04:29] LABS: MICROSCOPIC AUTO
[2018-01-21 04:30] LABS: CULTURE INDICATED? NO
[2018-01-21 05:59] LABS: BASOPHILS # (AUTO) 0.01 x10^3/uL (0-0.1); BASOPHILS % (AUTO) 0 % (0-1); EOSINOPHILS # (AUTO) 0.18 x10^3/uL (0-0.4); EOSINOPHILS % (AUTO) 4 % (1-7); LYMPHOCYTES # (AUTO) 1.16 x10^3/uL (1-3.4); LYMPHOCYTES % (AUTO) 22 % (22-44); MD NO; MEAN CORPUSCULAR HEMOGLOBIN 26.9 pg (27.5-34.5); MEAN CORPUSCULAR HGB CONC 32.4 g/dL (33.2-36.2); MEAN CORPUSCULAR VOLUME 83.2 fL (81-97); MEAN PLATELET VOLUME 8.3 fL (7.4-10.4); MONOCYTES # (AUTO) 0.66 x10^3/uL (0.2-0.8); MONOCYTES % (AUTO) 13 % (2-9); NEUTROPHILS # (AUTO) 3.21 x10^3/uL (1.8-6.8); NEUTROPHILS % (AUTO) 61 % (42-75); PLATELET COUNT 181 x10^3/uL (130-400); RED BLOOD COUNT 3.27 x10^6/uL (4.38-5.82); RED CELL DISTRIBUTION WIDTH 17.5 % (9.4-14.8)
[2018-01-21 06:07] LABS: ANION GAP 6 mmol/L (5-15); CALCIUM 10.7 mg/dL (8.5-10.1); CHLORIDE 104 mmol/L (98-107)
[2018-01-21 06:09] LABS: CREATININE 1.56 mg/dL (0.7-1.3)
[2018-01-21 06:45] VITALS: BP 105/68
[2018-01-21] MEDS: INSULIN LISPRO 100 UNITS/ML, PEN SQ-INSULIN SCH ×4 (07:00→20:26)
[2018-01-21] MEDS: FERROUS SULFATE 325 MG TABLET PO SCH ×2 (08:00→17:00)
[2018-01-21] MEDS: LEVOTHYROXINE 175 MCG TABLET PO SCH (08:00)
[2018-01-21] MEDS: SODIUM CHLORIDE FLUSH 10ML SYR IVF SCH ×2 (08:50→23:00)
[2018-01-21] MEDS: FUROSEMIDE 20 MG/2 ML IV SCH ×2 (08:50→22:59)
[2018-01-21] MEDS: SPIRONOLACTONE 25 MG TABLET PO SCH (08:54)
[2018-01-21] MEDS: TAMSULOSIN 0.4 MG CAP.ER.24H PO SCH (08:55)
[2018-01-21] MEDS: ASPIRIN 81 MG TABLET EC PO SCH (08:55)
[2018-01-21] MEDS: CARVEDILOL 6.25 MG TABLET PO SCH (08:55)
[2018-01-21] MEDS: LOSARTAN 50MG TABLET PO SCH (08:55)
[2018-01-21] MEDS: AMLODIPINE 5 MG TABLET PO SCH (08:55)
[2018-01-21] MEDS ORDERED: BISACODYL 10 MG SUPP PR SCH (09:00)
[2018-01-21] MEDS ORDERED: FUROSEMIDE 20 MG/2 ML IV SCH (09:00)
[2018-01-21] MEDS ORDERED: CEFEPIME 2 GM in SODIUM CHLORIDE 0.9% 100 ML IV SCH (09:00)
[2018-01-21] MEDS ORDERED: MAGNESIUM SULFATE PMX 2GM/50ML 50 ML IV ONE (12:30)
[2018-01-21] MEDS ORDERED: FUROSEMIDE 40 MG/4 ML ONE (14:39)
[2018-01-21] MEDS ORDERED: FUROSEMIDE 40 MG/4 ML IV STA (14:42)
[2018-01-21 15:04] VITALS: BP 110/59
[2018-01-21 18:55] VITALS: BP 116/73
[2018-01-21] MEDS: ATORVASTATIN 40 MG TABLET PO SCH (21:00)
[2018-01-21] MEDS: CEFEPIME 2 GM in SODIUM CHLORIDE 0.9% 100 ML IV SCH (23:00)
[2018-01-22] VITALS (7 sets, daily range): BP systolic 60–126; BP diastolic 49–69
[2018-01-22] MEDS: LEVOTHYROXINE 175 MCG TABLET PO SCH (02:08)
[2018-01-22] MEDS: HEPARIN 5,000 UNITS/ML, 1ML SQ SCH ×4 (06:03→20:12)
[2018-01-22 06:29] LABS: BASOPHILS # (AUTO) 0.02 x10^3/uL (0-0.1); BASOPHILS % (AUTO) 0 % (0-1); EOSINOPHILS # (AUTO) 0.05 x10^3/uL (0-0.4); EOSINOPHILS % (AUTO) 1 % (1-7); LYMPHOCYTES % (AUTO) 18 % (22-44); MD NO; MEAN CORPUSCULAR HEMOGLOBIN 27.3 pg (27.5-34.5); MEAN CORPUSCULAR HGB CONC 32.9 g/dL (33.2-36.2); MEAN CORPUSCULAR VOLUME 82.9 fL (81-97); MEAN PLATELET VOLUME 8.3 fL (7.4-10.4); MONOCYTES # (AUTO) 0.56 x10^3/uL (0.2-0.8); MONOCYTES % (AUTO) 8 % (2-9); NEUTROPHILS # (AUTO) 4.87 x10^3/uL (1.8-6.8); NEUTROPHILS % (AUTO) 73 % (42-75); PLATELET COUNT 200 x10^3/uL (130-400); RED BLOOD COUNT 3.43 x10^6/uL (4.38-5.82); RED CELL DISTRIBUTION WIDTH 16.9 % (9.4-14.8)
[2018-01-22 06:32] LABS: ANION GAP 7 mmol/L (5-15); CHLORIDE 103 mmol/L (98-107)
[2018-01-22] MEDS: INSULIN LISPRO 100 UNITS/ML, PEN SQ-INSULIN SCH ×4 (07:00→20:11)
[2018-01-22] MEDS: FERROUS SULFATE 325 MG TABLET PO SCH ×2 (08:00→15:59)
[2018-01-22] MEDS: LOSARTAN 50MG TABLET PO SCH (08:07)
[2018-01-22] MEDS: CARVEDILOL 6.25 MG TABLET PO SCH (08:07)
[2018-01-22] MEDS: ASPIRIN 81 MG TABLET EC PO SCH (08:07)
[2018-01-22] MEDS: TAMSULOSIN 0.4 MG CAP.ER.24H PO SCH (08:07)
[2018-01-22] MEDS: AMLODIPINE 5 MG TABLET PO SCH (08:07)
[2018-01-22] MEDS: SPIRONOLACTONE 25 MG TABLET PO SCH (08:07)
[2018-01-22] MEDS: SODIUM CHLORIDE FLUSH 10ML SYR IVF SCH ×2 (08:17→20:12)
[2018-01-22] MEDS: FUROSEMIDE 20 MG/2 ML IV SCH ×2 (08:17→20:11)
[2018-01-22] MEDS: CEFEPIME 2 GM in SODIUM CHLORIDE 0.9% 100 ML IV SCH ×2 (11:16→23:23)
[2018-01-22] MEDS: ATORVASTATIN 40 MG TABLET PO SCH (20:11)
[2018-01-23 00:12] VITALS: BP 120/60
[2018-01-23] MEDS: HEPARIN 5,000 UNITS/ML, 1ML SQ SCH ×3 (05:17→22:00)
[2018-01-23] MEDS: LEVOTHYROXINE 175 MCG TABLET PO SCH (06:15)
[2018-01-23 06:34] VITALS: BP 121/72
[2018-01-23] MEDS: INSULIN LISPRO 100 UNITS/ML, PEN SQ-INSULIN SCH ×4 (07:00→20:46)
[2018-01-23] MEDS: FERROUS SULFATE 325 MG TABLET PO SCH ×2 (09:44→17:19)
[2018-01-23] MEDS: FUROSEMIDE 20 MG/2 ML IV SCH ×2 (09:48→20:48)
[2018-01-23] MEDS: SODIUM CHLORIDE FLUSH 10ML SYR IVF SCH ×2 (09:52→20:49)
[2018-01-23] MEDS: TAMSULOSIN 0.4 MG CAP.ER.24H PO SCH (10:01)
[2018-01-23] MEDS: AMLODIPINE 5 MG TABLET PO SCH (10:04)
[2018-01-23] MEDS: CARVEDILOL 6.25 MG TABLET PO SCH (10:10)
[2018-01-23] MEDS: ASPIRIN 81 MG TABLET EC PO SCH (10:14)
[2018-01-23] MEDS: LOSARTAN 50MG TABLET PO SCH (10:16)
[2018-01-23] MEDS: SPIRONOLACTONE 25 MG TABLET PO SCH (10:17)
[2018-01-23 12:07] VITALS: BP 100/64
[2018-01-23] MEDS: CEFEPIME 2 GM in SODIUM CHLORIDE 0.9% 100 ML IV SCH (12:47)
[2018-01-23 19:39] VITALS: BP 115/60
[2018-01-23] MEDS ORDERED: hydrOXyzine 50MG TABLET PO ONE (20:30)
[2018-01-23] MEDS ORDERED: hydrOXyzine 50MG TABLET ONE (20:40)
[2018-01-23] MEDS: ATORVASTATIN 40 MG TABLET PO SCH (20:48)
[2018-01-24] MEDS: CEFEPIME 2 GM in SODIUM CHLORIDE 0.9% 100 ML IV SCH ×2 (00:54→12:41)
[2018-01-24] MEDS ORDERED: HALOPERIDOL 5 MG/ML IV ONE (01:30)
[2018-01-24] MEDS: HEPARIN 5,000 UNITS/ML, 1ML SQ SCH ×2 (05:18→17:21)
[2018-01-24] MEDS: LEVOTHYROXINE 175 MCG TABLET PO SCH (05:18)
[2018-01-24 05:51] LABS: ANION GAP 7 mmol/L (5-15); CALCIUM 10.1 mg/dL (8.5-10.1); CHLORIDE 98 mmol/L (98-107)
[2018-01-24 05:55] LABS: TOTAL PROTEIN 5.3 g/dL (6.4-8.2)
[2018-01-24 06:35] VITALS: BP 143/68
[2018-01-24] MEDS: FERROUS SULFATE 325 MG TABLET PO SCH ×2 (09:30→17:21)
[2018-01-24] MEDS: SPIRONOLACTONE 25 MG TABLET PO SCH (09:30)
[2018-01-24] MEDS: LOSARTAN 50MG TABLET PO SCH (09:30)
[2018-01-24] MEDS: ASPIRIN 81 MG TABLET EC PO SCH (09:30)
[2018-01-24] MEDS: CARVEDILOL 6.25 MG TABLET PO SCH (09:30)
[2018-01-24] MEDS: SODIUM CHLORIDE FLUSH 10ML SYR IVF SCH ×2 (09:30→20:56)
[2018-01-24] MEDS: FUROSEMIDE 20 MG/2 ML IV SCH ×2 (09:30→20:56)
[2018-01-24] MEDS: TAMSULOSIN 0.4 MG CAP.ER.24H PO SCH (09:31)
[2018-01-24] MEDS: INSULIN LISPRO 100 UNITS/ML, PEN SQ-INSULIN SCH ×4 (09:31→20:57)
[2018-01-24 11:41] LABS: MICROSCOPIC INDICATED
[2018-01-24 12:09] LABS: CULTURE INDICATED? NO
[2018-01-24 12:35] VITALS: BP 92/66
[2018-01-24 19:30] VITALS: BP 114/62
[2018-01-24] MEDS: hydrOXyzine 50MG TABLET PO PRN (20:57)
[2018-01-24] MEDS: ATORVASTATIN 40 MG TABLET PO SCH (20:57)
[2018-01-25] MEDS: CEFEPIME 2 GM in SODIUM CHLORIDE 0.9% 100 ML IV SCH ×2 (01:06→12:30)
[2018-01-25] MEDS: HEPARIN 5,000 UNITS/ML, 1ML SQ SCH ×3 (01:06→17:00)
[2018-01-25 01:56] VITALS: BP 123/62
[2018-01-25] MEDS: LEVOTHYROXINE 175 MCG TABLET PO SCH (05:55)
[2018-01-25 06:35] VITALS: BP 110/63
[2018-01-25] MEDS: INSULIN LISPRO 100 UNITS/ML, PEN SQ-INSULIN SCH ×4 (07:42→20:29)
[2018-01-25] MEDS: LOSARTAN 50MG TABLET PO SCH (11:29)
[2018-01-25] MEDS: SPIRONOLACTONE 25 MG TABLET PO SCH (11:29)
[2018-01-25] MEDS: CARVEDILOL 6.25 MG TABLET PO SCH (11:29)
[2018-01-25] MEDS: FERROUS SULFATE 325 MG TABLET PO SCH ×2 (11:29→17:33)
[2018-01-25] MEDS: SODIUM CHLORIDE FLUSH 10ML SYR IVF SCH ×2 (11:30→20:30)
[2018-01-25] MEDS: FUROSEMIDE 20 MG/2 ML IV SCH ×2 (11:30→20:28)
[2018-01-25] MEDS: ASPIRIN 81 MG TABLET EC PO SCH (11:30)
[2018-01-25] MEDS: TAMSULOSIN 0.4 MG CAP.ER.24H PO SCH (11:31)
[2018-01-25] MEDS: HYDROcodone/APAP 5/325 TABLET PO PRN ×2 (12:30→20:10)
[2018-01-25 13:34] VITALS: BP 103/60
[2018-01-25] MEDS: FAMOTIDINE 20 MG TABLET PO SCH (17:33)
[2018-01-25] MEDS: hydrOXyzine 50MG TABLET PO PRN (20:10)
[2018-01-25] MEDS: ATORVASTATIN 40 MG TABLET PO SCH (20:27)
[2018-01-25 20:45] VITALS: BP 101/52
[2018-01-25] MEDS ORDERED: FAMOTIDINE 20 MG TABLET PO SCH (21:00)
[2018-01-26] MEDS: HEPARIN 5,000 UNITS/ML, 1ML SQ SCH ×3 (00:22→17:37)
[2018-01-26] MEDS: CEFEPIME 2 GM in SODIUM CHLORIDE 0.9% 100 ML IV SCH (00:22)
[2018-01-26 02:06] VITALS: BP 108/61
[2018-01-26] MEDS ORDERED: HALOPERIDOL 5 MG/ML IV ONE (03:00)
[2018-01-26] MEDS: INSULIN LISPRO 100 UNITS/ML, PEN SQ-INSULIN SCH ×4 (07:00→20:08)
[2018-01-26 07:53] VITALS: BP 100/54
[2018-01-26] MEDS: LEVOTHYROXINE 175 MCG TABLET PO SCH (08:00)
[2018-01-26] MEDS: FERROUS SULFATE 325 MG TABLET PO SCH ×2 (08:00→16:36)
[2018-01-26] MEDS: FAMOTIDINE 20 MG TABLET PO SCH (09:00)
[2018-01-26] MEDS: LOSARTAN 50MG TABLET PO SCH (09:00)
[2018-01-26] MEDS: SPIRONOLACTONE 25 MG TABLET PO SCH (09:00)
[2018-01-26] MEDS: TAMSULOSIN 0.4 MG CAP.ER.24H PO SCH (09:00)
[2018-01-26] MEDS: CARVEDILOL 6.25 MG TABLET PO SCH (09:00)
[2018-01-26] MEDS: ASPIRIN 81 MG TABLET EC PO SCH (09:00)
[2018-01-26] MEDS: SODIUM CHLORIDE FLUSH 10ML SYR IVF SCH ×2 (09:34→20:18)
[2018-01-26] MEDS: FUROSEMIDE 20 MG/2 ML IV SCH ×2 (09:34→20:18)
[2018-01-26] MEDS ORDERED: HALOPERIDOL 5 MG/ML IV PRN ×2 (13:30→17:00)
[2018-01-26 14:03] LABS: MICROSCOPIC INDICATED
[2018-01-26 14:18] LABS: CULTURE INDICATED? YES
[2018-01-26 15:54] VITALS: BP 142/75
[2018-01-26 19:42] VITALS: BP 138/69
[2018-01-26] MEDS: ATORVASTATIN 40 MG TABLET PO SCH (20:08)
[2018-01-26] MEDS ORDERED: FUROSEMIDE 40 MG/4 ML ONE (22:03)
[2018-01-26 22:12] LABS: BASOPHILS # (AUTO) 0.01 x10^3/uL (0-0.1); BASOPHILS % (AUTO) 0 % (0-1); EOSINOPHILS # (AUTO) 0.16 x10^3/uL (0-0.4); EOSINOPHILS % (AUTO) 2 % (1-7); LYMPHOCYTES # (AUTO) 1.88 x10^3/uL (1-3.4); LYMPHOCYTES % (AUTO) 18 % (22-44); MD NO; MEAN CORPUSCULAR HEMOGLOBIN 27.2 pg (27.5-34.5); MEAN CORPUSCULAR VOLUME 82.3 fL (81-97); MONOCYTES # (AUTO) 0.93 x10^3/uL (0.2-0.8); MONOCYTES % (AUTO) 9 % (2-9); NEUTROPHILS # (AUTO) 7.32 x10^3/uL (1.8-6.8); NEUTROPHILS % (AUTO) 71 % (42-75); PLATELET COUNT 200 x10^3/uL (130-400); RED BLOOD COUNT 3.85 x10^6/uL (4.38-5.82); RED CELL DISTRIBUTION WIDTH 16.8 % (9.4-14.8)
[2018-01-26] MEDS ORDERED: FUROSEMIDE 40 MG/4 ML IV ONE (22:30)
[2018-01-26] MEDS ORDERED: MORPHINE SULFATE 4 MG/ML, 1ML IVPush PRN (22:30)
[2018-01-27] MEDS: HEPARIN 5,000 UNITS/ML, 1ML SQ SCH ×2 (01:00→07:36)
[2018-01-27 02:46] VITALS: BP 155/71
[2018-01-27 05:01] LABS: ANION GAP 9 mmol/L (5-15); CALCIUM 9.1 mg/dL (8.5-10.1); CHLORIDE 101 mmol/L (98-107)
[2018-01-27] MEDS: LEVOTHYROXINE 175 MCG TABLET PO SCH (05:28)
[2018-01-27 06:59] VITALS: BP 120/63
[2018-01-27] MEDS: INSULIN LISPRO 100 UNITS/ML, PEN SQ-INSULIN SCH ×2 (07:00→10:52)
[2018-01-27] MEDS: ASPIRIN 81 MG TABLET EC PO SCH (07:36)
[2018-01-27] MEDS: CARVEDILOL 6.25 MG TABLET PO SCH (07:36)
[2018-01-27] MEDS: FAMOTIDINE 20 MG TABLET PO SCH (07:36)
[2018-01-27] MEDS: SPIRONOLACTONE 25 MG TABLET PO SCH (07:36)
[2018-01-27] MEDS: FERROUS SULFATE 325 MG TABLET PO SCH (07:36)
[2018-01-27] MEDS: FUROSEMIDE 20 MG/2 ML IV SCH (07:46)
[2018-01-27] MEDS: SODIUM CHLORIDE FLUSH 10ML SYR IVF SCH (07:46)
[2018-01-27] MEDS ORDERED: LOSARTAN 50MG TABLET PO SCH (09:00)
[2018-01-27] MEDS ORDERED: PROCHLORPERAZINE 5 MG/ML, 2ML IVPush PRN (11:00)
[2018-01-27] MEDS ORDERED: HALOPERIDOL 5 MG/ML IVPush PRN (11:00)
[2018-01-27] MEDS ORDERED: MORPHINE SULFATE 4 MG/ML, 1ML IVPush PRN ×2 (11:00)
[2018-01-27] MEDS ORDERED: SCOPOLAMINE PATCH, 1.5MG PATCH.TD72 TD PRN (11:00)
[2018-01-27] MEDS ORDERED: MORPHINE MC SCH (15:30)
[2018-01-27 20:02] VITALS: BP 120/63
[2018-01-28] MEDS ORDERED: LORazepam 2 MG/ML, 1ML IVPush PRN (08:30)
[2018-01-28] MEDS ORDERED: ATROPINE OPHTH SOLN 1%, 5ML BC PRN (08:30)
== END 2018-01-28 10:36 | disposition expired | DRG 291 ==
LOC: ED 19:45 → EDIP 19:50 → 4WST 20:28 → 3NW 01-28 06:04
PROVIDERS: ADMIT Family Medicine; ATTEND Family Medicine
PROC: 0W9B3ZZ Drainage of Left Pleural Cavity, Percutaneous Approach (ICD-10-PCS; principal; 2018-01-21)
PROC: 0T9B70Z Drainage of Bladder with Drainage Device, Via Natural or Artificial Opening (ICD-10-PCS; 2018-01-26)
DX: I13.0 Hypertensive heart and chronic kidney disease with heart failure and stage 1 through stage 4 chronic kidney disease, or unspecified chronic kidney disease (principal); I50.33 Acute on chronic diastolic (congestive) heart failure; J18.9 Pneumonia, unspecified organism; J96.01 Acute respiratory failure with hypoxia; J90 Pleural effusion, not elsewhere classified; N17.9 Acute kidney failure, unspecified; D50.9 Iron deficiency anemia, unspecified; E03.9 Hypothyroidism, unspecified; E11.22 Type 2 diabetes mellitus with diabetic chronic kidney disease; E88.09 Other disorders of plasma-protein metabolism, not elsewhere classified; E11.649 Type 2 diabetes mellitus with hypoglycemia without coma; F41.9 Anxiety disorder, unspecified; I25.10 Atherosclerotic heart disease of native coronary artery without angina pectoris; Y95 Nosocomial condition; R13.10 Dysphagia, unspecified; N18.3 Chronic kidney disease, stage 3 (moderate); Z51.5 Encounter for palliative care; Z66 Do not resuscitate; Z86.73 Personal history of transient ischemic attack (TIA), and cerebral infarction without residual deficits; Z95.5 Presence of coronary angioplasty implant and graft; Z91.010 Allergy to peanuts; Z79.84 Long term (current) use of oral hypoglycemic drugs
CPT/HCPCS: 32555; 36415; 36600; 71045; 74230; 80048; 81001; 82040; 82803; 82945; 82962; 83605; 83615; 83735; 83880; 84100; 84145; 84155; 84157; 84484; 85025; 86480; 87040; 87070; 87086; 87205; 88112; 88305; 93005; 93306; 96372; 96374; 96375; 96376; 99285; J1644; J1940; J2270; J1630; J1815; J3475; J3480